=== PATIENT | female | born 1995 | race Caucasian/White ===

== ENCOUNTER 2019-06-13 17:09 | Emergency (ER) | payer SELFPAY ==
[~2019-06-13] VITALS: Ht 152.4 cm; Wt 79.4 kg
[~2019-06-13 17:09] MED LIST: AGM875T PO; ALBU8.5H2 IH; AMOX500C2 PO; BENZ100C18 PO; CITA20TA4 PO; Celexa; DOXY100C2 PO; HYDR-1231 PO; LISD40CA3 PO; LMT25T PO; MNTL10T PO; NAPR-243 PO; OSEL45CA PO; SLMFT1E INH
--- NOTE | 2019-06-13 17:24 | NUR ---
PT TO FT1 AT THIS TIME.
[2019-06-13] MEDS ORDERED: IBUPROFEN 800 MG (MOTRIN) TAB PO STA (17:38)
[2019-06-13] MEDS ORDERED: AMOX500C2 PO (17:40)
--- NOTE | 2019-06-13 17:43 | ED EENT ---
History of Present Illness General Chief Complaint: Dental Problems/Pain Stated Complaint: DENTAL PAIN,WISDOM TOOTH BROKE Nursing Triage Note: PT TO ED W/ C/O DENTAL PAIN ONSET X3 DAYS R/T POSS BROKEN WISDOM TOOTH. REPORTS TAKING OTC MEDS FOR PAIN BUT DENIES IMPROVEMENT. History of Present Illness Date Seen by Provider: Jun 13, 2019 Time Seen by Provider: 17:25 Initial Comments 23-year-old female presents for right lower dental pain. She states the symptoms of been present for approximately 2 days. She's been trying aqeh-eqs-ctdjnlz medicines that has not taken any today. She does not see a dentist regularly. Timing/Duration: abrupt Location: dental Prearrival Treatment: no prearrival treatment, over the counter meds (yesterday) Associated Symptoms: denies symptoms Allergies and Home Medications Allergies Coded Allergies: NKANo Known Allergies (Unverified Allergy, Mild, 03/10/09) Home Medications Amoxicillin 500 Mg Capsule, 2 EACH PO TID Prescribed by: CRESCENCIO OCHOA on 07/23/141914 Amoxicillin 500 Mg Capsule, 500 MG PO TID Prescribed by: MAHSA HERNÁNDEZ on 06/13/19 174 Hydrocodone Bit/Acetaminophen 1 Tab Tablet, 1 TAB PO Q4H PRN for PAIN Prescribed by: CRESCENCIO OCHOA on 07/23/141914 Patient Home Medication List Home Medication List Reviewed: Yes Review of Systems Review of Systems Constitutional: no symptoms reported, see HPI Mouth: see HPI, pain (right lower dental) All Other Systems Reviewed Negative Unless Noted: Yes Past Heunwnn-Wzrvcc-Fqznjv Hx Past Med/Social Hx: Reviewed Nursing Past Med/Soc Hx Patient Social History Alcohol Use: Rarely Uses Recreational Drug Use: No 2nd Hand Smoke Exposure: Yes ([employer]) Recent Foreign Travel: No Contact w/Someone Who Travel: No Recent Infectious Disease Expo: No Past Medical History Surgeries: No Respiratory: Yes (FREQUENT BRONCHITIS WHEN YOUNG) Asthma Cardiac: No Neurological: No Reproductive Disorders: No Sexually Transmitted Disease: No Gastrointestinal: No Musculoskeletal: No Endocrine: Yes Hypothyroidsim HEENT: No Cancer: No Psychosocial: Yes Anxiety Integumentary: No Blood Disorders: No Physical Exam Vital Signs Vital Signs - First Documented 06/13/19 17:18 Temp 97.8 Pulse 68 Resp 18 B/P (MAP) 131/93 (106) Pulse Ox 98 O2 Delivery Room Air Height, Weight, BMI Height: 5'1" Weight: 175lbs. oz. 79.941445en; BMI Method:Stated General Appearance: WD/WN, no apparent distress Ears: bilateral ear auricle normal, bilateral ear canal normal, bilateral ear TM normal Nose: normal inspection; No discharge Mouth/Throat: pharynx normal, dental tenderness (right lower molars); No mandibular swelling, No maxillary swelling, No pharynx swelling, No pharynx tenderness, No tongue swollen, No tonsillar exudate, No tonsillar swelling, No uvula swelling, No voice changes Cardiovascular: normal peripheral pulses, regular rate, rhythm Respiratory: chest non-tender, lungs clear, normal breath sounds Neurologic/Psychiatric: no motor/sensory deficits, alert, normal mood/affect, oriented x 3 Skin: normal color, warm/dry Progress/Results/Core Measures Results/Orders My Orders Orders - MAHSA HERNÁNDEZ Ibuprofen Tablet (Motrin Tablet) (06/13/19 17:38) Vital Signs/I&O 06/13/19 06/13/19 17:18 17:48 Temp 97.8 Pulse 68 0 Resp 18 0 B/P (MAP) 131/93 (106) 0/0 (0) Pulse Ox 98 0 O2 Delivery Room Air Blood Pressure Mean: 106 Departure Impression Primary Impression: Pain, dental Disposition: 01 HOME, SELF-CARE Condition: Improved Departure-Patient Inst. Decision time for Depature: 17:40 Referrals: [facility] (PCP/Family) Primary Care Physician Patient Instructions: Dental Pain (DC) Add. Discharge Instructions: Alternate between ibuprofen 600 mg and Tylenol 650 mg every 4 hours. Take amoxicillin as prescribed. Follow-up with your dentist or the [facility] dental clinic on Saturday. You may apply zfcb-ujr-[id number] topical medicine for dental pain (Oragel, Ambesol etc). Ice or heat to cheek/jaw. Return to emergency department for new, urgent health care needs. All discharge instructions reviewed with patient and/or family. Voiced understanding. Scripts Amoxicillin (Amoxicillin) 500 Mg Capsule 500 MG PO TID, #21 CAP 0 Refills Prov: MAHSA HERNÁNDEZ 06/13/19 MAHSA HERNÁNDEZ Jun 13, 2019 17:43
[2019-06-13 17:48] VITALS: BP 0/0
--- NOTE | 2019-06-13 17:48 | NUR ---
PT DISCHARGED TO HOME W/ INSTR. RX TRANSMITTED TO [facility]. PT TO TAKE MEDS PRESCRIBED, F/U W/ DENTIST ET RETURN FOR ANY OTHER CONCERNS. NO QUESTIONS, UNDERSTANDING VOICED
== END 2019-06-13 17:48 | disposition home or self-care (01) ==
LOC: EDUNIT# 17:09 → ER 17:10
DX: K08.89 Other specified disorders of teeth and supporting structures (principal); E03.9 Hypothyroidism, unspecified; J45.909 Unspecified asthma, uncomplicated; F41.9 Anxiety disorder, unspecified
CPT/HCPCS: 99283

== ENCOUNTER → 2019-07-10 | Outpatient (CLI) | payer SELFPAY ==
--- NOTE | 2019-07-10 10:54 | Diagnostic Imaging Report ---
Indication: Difficulty swallowing. The right lobe of the thyroid measures 2.9 x 0.7 x 0.9 cm and the left lobe measures 3.1 x 0.8 x 1.0 cm. The isthmus is 2 mm in thickness. Both lobes of the thyroid show homogeneous echotexture. No discrete thyroid mass is detected. Impression: Unremarkable thyroid ultrasound. Dictated by: Dictated on workstation # [id number]
== END ==
LOC: RAD 10:14
PROVIDERS: ATTEND Nurse Practitioner Community Health
DX: M54.2 Cervicalgia (principal); R13.10 Dysphagia, unspecified; R09.89 Other specified symptoms and signs involving the circulatory and respiratory systems
CPT/HCPCS: 76536

== ENCOUNTER 2019-11-27 18:47 | Emergency (ER) | payer SELFPAY ==
[~2019-11-27] VITALS: Ht 152.4 cm; Wt 81.8 kg
[2019-11-27] MEDS ORDERED: LACTATED RINGERS 1,000 ML IV ONE (19:47)
--- NOTE | 2019-11-27 20:14 | ED Headache ---
General Chief Complaint: Eye Problems Stated Complaint: VISION PROBLEMS Nursing Triage Note: Pt amb to room #10 with c/o blurred vision and headache. Pt reports on this day while at work, she began to experience blurred vision, after looking at florescent lights, lasting approx x2 minutes. Pt states, "I saw flashing light mostly in my Lt eye." Pt reports after episode, headache began et is accompanied by photophobia. A&OX4. 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 VISION RETURNED TO NORMAL. THEN SHE BEGAN TO HAVE A "MIGRAINE" --STATES IT IS A POUNDING BEHIND HER RIGHT EYE, AND IS SENSITIVE TO LIGHT. HAS NOT TAKEN ANYTHING FOR HEADACHE NO NAUSEA/VOMITING NO DIZZINESS NO SYNCOPE OR SEIZURE ACTIVITY NO PARESTHESIAS OR MOTOR DEFICITS NO FEVER OR RECENT ILLNESS NO NECK PAIN OR STIFFNESS STATES THIS IS NOT A NEW JOB FOR HER, AND NOTHING ABOUT HER WORK ENVIRONMENT HAS CHANGED, HAS BEEN THERE SINCE 02/2019 DENIES ANY UNUSUAL STRESSORS. LMP--IUD PLACED IN JUN, A COUPLE OF MONTHS AGO. PCP: [facility], TALHA MERA Allergies and Home Medications Allergies Coded Allergies: NKANo Known Allergies (Unverified Allergy, Mild, 03/10/09) Home Medications Amoxicillin 500 Mg Capsule, 2 EACH PO TID Prescribed by: CRESCENCIO OCHOA on 07/23/141914 Amoxicillin 500 Mg Capsule, 500 MG PO TID Prescribed by: MAHSA HERNÁNDEZ on 06/13/19 174 Hydrocodone Bit/Acetaminophen 1 Tab Tablet, 1 TAB PO Q4H PRN for PAIN Prescribed by: CRESCENCIO OCHOA on 07/23/141914 Review of Systems Review of Systems Constitutional: no symptoms reported; No chills, No diaphoresis, No dizziness, No fever Eyes: See HPI, Blurred Vision, Pain, Photophobia, Vision Changes Ears, Nose, Mouth, Throat: no symptoms reported Respiratory: no symptoms reported Cardiovascular: no symptoms reported Gastrointestinal: no symptoms reported Genitourinary: no symptoms reported : No Musculoskeletal: no symptoms reported Skin: no symptoms reported Psychiatric/Neurological: See HPI, Headache; Denies Numbness, Denies Paresthesia, Denies Seizure, Denies Tingling, Denies Weakness Past Ujfwawd-Csqdgs-Yojset Hx Past Med/Social Hx: Reviewed and Corrections made Patient Social History Alcohol Use: Occasionally Uses Recreational Drug Use: No Smoking Status: Never a Smoker 2nd Hand Smoke Exposure: Yes ([employer]) Recent Foreign Travel: No Contact w/Someone Who Travel: No Recent Infectious Disease Expo: No Past Medical History Surgeries: No Respiratory: Yes (FREQUENT BRONCHITIS WHEN YOUNG) Asthma Cardiac: No Neurological: No Reproductive Disorders: No Sexually Transmitted Disease: No Genitourinary: No Gastrointestinal: No Musculoskeletal: No Endocrine: Yes Hypothyroidsim HEENT: No Cancer: No Psychosocial: Yes Anxiety Integumentary: No Blood Disorders: No Physical Exam Vital Signs Vital Signs - First Documented 11/27/19 19:28 Temp 36.6 Pulse 72 Resp 18 B/P (MAP) 116/83 (94) Pulse Ox 97 O2 Delivery Room Air Capillary Refill : Less Than 3 Seconds Height, Weight, BMI Height: 5'1" Weight: 175lbs. oz. 79.597627ye; 35.00 BMI Method:Stated General Appearance: WD/WN, no apparent distress HEENT: PERRL/EOMI, normal ENT inspection, TMs normal, pharynx normal, photophobia (MILD PHOTOPHOBIA INITIALLY WHEN I ENTERED ROOM, BUT THEN SHOWED NO SIGNS OF PHOTOPHOBIA AFTER A MINUTE OR TWO. ) Neck: non-tender, full range of motion, supple, normal inspection Cardiovascular: normal peripheral pulses, regular rate, rhythm, no edema, no JVD, no murmur Respiratory: normal breath sounds, no respiratory distress, no accessory muscle use Gastrointestinal: non tender, soft Back: normal inspection Extremities: normal inspection Psychiatric: alert, oriented x 3 Crainal Nerves: normal hearing, normal speech, PERRL Coordination/Gait: normal finger to nose, normal gait, negative Romberg's sign Motor/Sensory: no motor deficit, no sensory deficit, no pronator drift Skin: normal color, warm/dry Progress/Results/Core Measures Results/Orders Lab Results Laboratory Tests Test 11/27/19 20:13 11/27/19 20:38 Range/Units White Blood Count 9.3 4.3-11.0 10^3/uL Red Blood Count 4.67 4.35-5.85 10^6/uL Hemoglobin 13.9 11.5-16.0 G/DL Hematocrit 40 35-52 % Mean Corpuscular Volume 86 80-99 FL Mean Corpuscular Hemoglobin 30 25-34 PG Mean Corpuscular Hemoglobin Concent 35 32-36 G/DL Red Cell Distribution Width 13.3 10.0-14.5 % Platelet Count 351 130-400 10^3/uL Mean Platelet Volume 10.6 H 7.4-10.4 FL Neutrophils (%) (Auto) 64 42-75 % Lymphocytes (%) (Auto) 28 12-44 % Monocytes (%) (Auto) 6 0-12 % Eosinophils (%) (Auto) 1 0-10 % Basophils (%) (Auto) 0 0-10 % Neutrophils # (Auto) 6.0 1.8-7.8 X 10^3 Lymphocytes # (Auto) 2.6 1.0-4.0 X 10^3 Monocytes # (Auto) 0.6 0.0-1.0 X 10^3 Eosinophils # (Auto) 0.1 0.0-0.3 10^3/uL Basophils # (Auto) 0.0 0.0-0.1 10^3/uL Erythrocyte Sedimentation Rate 15 0-20 MM/HR Prothrombin Time 13.4 12.2-14.7 SEC INR Comment 1.0 0.8-1.4 Activated Partial Thromboplast Time 28 24-35 SEC Sodium Level 139 135-145 MMOL/L Potassium Level 4.1 3.6-5.0 MMOL/L Chloride Level 105 98-107 MMOL/L Carbon Dioxide Level 20 L 21-32 MMOL/L Anion Gap 14 5-14 MMOL/L Blood Urea Nitrogen 11 7-18 MG/DL Creatinine 0.79 0.60-1.30 MG/DL Estimat Glomerular Filtration Rate > 60 BUN/Creatinine Ratio 14 Glucose Level 94 70-105 MG/DL Calcium Level 9.4 8.5-10.1 MG/DL Corrected Calcium 9.1 8.5-10.1 MG/DL Magnesium Level 1.9 1.6-2.4 MG/DL Total Bilirubin 0.8 0.1-1.0 MG/DL Aspartate Amino Transf (AST/SGOT) 14 5-34 U/L Alanine Aminotransferase (ALT/SGPT) 9 0-55 U/L Alkaline Phosphatase 80 40-136 U/L Total Protein 7.7 6.4-8.2 GM/DL Albumin 4.4 3.2-4.5 GM/DL Free Thyroxine 0.95 0.70-1.48 NG/DL TSH [place] Testing 4.96 H 0.35-4.94 UIU/ML Urine Color YELLOW Urine Clarity CLEAR Urine pH 5.5 5-9 Urine Specific [place] 1.020 1.016-1.022 Urine Protein NEGATIVE NEGATIVE Urine Glucose (UA) NEGATIVE NEGATIVE Urine Ketones NEGATIVE NEGATIVE Urine Nitrite NEGATIVE NEGATIVE Urine Bilirubin NEGATIVE NEGATIVE Urine Urobilinogen 0.2 < = 1.0 MG/DL Urine Leukocyte Esterase TRACE H NEGATIVE Urine RBC (Auto) 1+ H NEGATIVE Urine RBC 0-2 /HPF Urine WBC 5-10 H /HPF Urine Squamous Epithelial Cells 0-2 /HPF Urine Crystals NONE /LPF Urine Bacteria TRACE /HPF Urine Casts NONE /LPF Urine Mucus NEGATIVE /LPF Urine Culture Indicated YES My Orders Orders - WESLEY HAN DO Ed Iv/Invasive Line Start (11/27/19 19:47) Urine Bedside (11/27/19 19:47) Monitor-Rhythm Ecg Trace Only (11/27/19 19:47) Ct Head Wo-R/O Stroke (11/27/19 19:47) Cbc With Automated Diff (11/27/19 19:47) Comprehensive Metabolic Panel (11/27/19 19:47) Erythrocyte Sedimentation Rate (11/27/19 19:47) Magnesium (11/27/19 19:47) Protime With Inr (11/27/19 19:47) Partial Thromboplastin Time (11/27/19 19:47) Thyroid Analyzer (11/27/19 19:47) Ua Culture If Indicated (11/27/19 19:47) Ed Iv/Invasive Line Start (11/27/19 19:47) Lactated Ringers (Lr 1000 Ml Iv Solution (11/27/19 19:47) Free T4 (Free Thyroxine) (11/27/19 20:13) Urine Culture (11/27/19 20:38) Medications Given in ED Current Medications Medications Dose Ordered Sig/Jayden Route Start Time Stop Time Status Last Admin Dose Admin Lactated Ringer's 1,000 ml @ 0 mls/hr Q0M ONCE IV 11/27/19 19:47 11/27/19 19:49 DC 11/27/19 20:12 999 MLS/HR Vital Signs/I&O 11/27/19 19:28 Temp 36.6 Pulse 72 Resp 18 B/P (MAP) 116/83 (94) Pulse Ox 97 O2 Delivery Room Air Blood Pressure Mean: 94 Departure Impression Primary Impression: Migraine headache with aura Disposition: HOME, SELF-CARE Condition: Improved Departure-Patient Inst. Referrals: [facility] (PCP/Family) Primary Care Physician Patient Instructions: Migraine Headache (DC) Add. Discharge Instructions: LOTS OF CLEAR LIQUIDS FOLLOW UP WITH YOUR DR NEXT WEEK FOR FURTHER CARE All discharge instructions reviewed with patient and/or family. Voiced understanding. Scripts Nitrofurantoin Monohyd/M-Cryst (Macrobid 100 mg Capsule) 100 Mg Capsule 100 MG PO BID, #20 CAP Prov: REFUGIO HANA K DO 11/27/19 Ibuprofen (Ibuprofen) 800 Mg Tablet 800 MG PO Q8H PRN for PAIN, #30 TAB Prov: REFUGIO HANA K DO 11/27/19 Butalb/Acetaminophen/Caffeine (Esgic Capsule) 1 Each Capsule 1-2 EACH PO Q6H, #10 CAP Prov: REFUGIO HANA K DO 11/27/19 REFUGIO HANA K DO Nov 27, 2019 20:14
[2019-11-27 20:23] LABS: BASOPHILS % (AUTO) 0 % (0-10); EOSINOPHILS # (AUTO) 0.1 10^3/uL (0.0-0.3); EOSINOPHILS % (AUTO) 1 % (0-10); HEMATOCRIT 40 % (35-52); HEMOGLOBIN 13.9 G/DL (11.5-16.0); LYMPHOCYTES # (AUTO) 2.6 X 10^3 (1.0-4.0); LYMPHOCYTES % (AUTO) 28 % (12-44); MEAN CORPUSCULAR HEMOGLOBIN 30 PG (25-34); MEAN CORPUSCULAR HGB CONC 35 G/DL (32-36); MEAN CORPUSCULAR VOLUME 86 FL (80-99); MEAN PLATELET VOLUME 10.6 FL (7.4-10.4); MONOCYTES # (AUTO) 0.6 X 10^3 (0.0-1.0); MONOCYTES % (AUTO) 6 % (0-12); NEUTROPHILS % (AUTO) 64 % (42-75); PLATELET COUNT 351 10^3/uL (130-400); RED CELL DISTRIBUTION WIDTH 13.3 % (10.0-14.5); WHITE BLOOD COUNT 9.3 10^3/uL (4.3-11.0)
[2019-11-27 20:39] LABS: PROTHROMBIN TIME PATIENT 13.4 SEC (12.2-14.7)
[2019-11-27 20:42] LABS: ERYTHROCYTE SEDIMENTATION RATE 15 MM/HR (0-20)
[2019-11-27 20:43] LABS: ALANINE AMINOTRANSFERASE 9 U/L (0-55); ALBUMIN 4.4 GM/DL (3.2-4.5); ALKALINE PHOSPHATASE 80 U/L (40-136); BILIRUBIN,TOTAL 0.8 MG/DL (0.1-1.0); BUN/CREATININE RATIO 14; CALCIUM 9.4 MG/DL (8.5-10.1); CARBON DIOXIDE 20 MMOL/L (21-32); CHLORIDE 105 MMOL/L (98-107); CREATININE SERUM 0.79 MG/DL (0.60-1.30); GFR ESTIMATED > 60; GLUCOSE 94 MG/DL (70-105); MAGNESIUM 1.9 MG/DL (1.6-2.4); POTASSIUM 4.1 MMOL/L (3.6-5.0); SODIUM 139 MMOL/L (135-145); TOTAL PROTEIN 7.7 GM/DL (6.4-8.2)
[2019-11-27 20:48] LABS: BILIRUBIN,URINE NEGATIVE (NEGATIVE); CLARITY,URINE CLEAR; COLOR,URINE YELLOW; GLUCOSE, URINE (UA) NEGATIVE (NEGATIVE); KETONES,URINE NEGATIVE (NEGATIVE); LEUKOCYTE ESTERASE ,URINE TRACE (NEGATIVE); NITRITE,URINE NEGATIVE (NEGATIVE); PH,URINE 5.5 (5-9); PROTEIN,URINE NEGATIVE (NEGATIVE)
[2019-11-27 21:03] LABS: TSH (THYROID ANALYZER) 4.96 UIU/ML (0.35-4.94)
--- NOTE | 2019-11-27 21:07 | Diagnostic Imaging Report ---
PROCEDURE: CT head w/o, r/o stroke. TECHNIQUE: Multiple contiguous axial images were obtained through the brain without the use of intravenous contrast. Auto Exposure Controls were utilized during the CT exam to meet ALARA standards for radiation dose reduction. DATE: November 27, 2019. COMPARISON: None. INDICATION: 24-year-old female, blurry vision and headache. FINDINGS: The ventricles and cerebral spinal fluid spaces are of normal size and configuration for the patient's age. There is no mass effect or midline shift. There is no acute intracranial hemorrhage. There is no abnormal extra-axial fluid collection. The visualized portions of the paranasal sinuses, mastoid air cells and middle ears are well aerated. IMPRESSION: No identified acute intracranial abnormality. Dictated by: Dictated on workstation # [id number]
[2019-11-27 21:15] LABS: BACTERIA,URINE TRACE /HPF; RBC,URINE 0-2 /HPF; SQUAMOUS EPITHELIAL CELL,UR 0-2 /HPF
[2019-11-27 22:08] LABS: FREE T4 (FREE THYROXINE) 0.95 NG/DL (0.70-1.48)
[2019-11-27] MEDS ORDERED: KETOROLAC 30 MG/ML VIAL IVP ONE (22:45)
[2019-11-27] MEDS ORDERED: NITROFURANTOIN 100 MG (MACROBID) CAPSULE PO ONE (22:45)
[2019-11-27] MEDS ORDERED: IBUP-1780 PO (22:48)
[2019-11-27] MEDS ORDERED: NITR-65 PO (22:48)
[2019-11-27] MEDS ORDERED: BUTA1CAP45 PO (22:48)
[2019-11-27 23:24] VITALS: BP 132/81
== END 2019-11-27 23:24 | disposition home or self-care (01) ==
LOC: EDUNIT# 18:47 → ER 18:48
DX: G43.109 Migraine with aura, not intractable, without status migrainosus (principal)
CPT/HCPCS: 36415; 70450; 80053; 81000; 83735; 84439; 84443; 84703; 85025; 85610; 85652; 85730; 87088; 93041; 96361; 96374

== ENCOUNTER 2020-09-30 19:21 | Emergency (ER) | payer SELFPAY ==
[~2020-09-30] VITALS: Ht 152.4 cm; Wt 78.0 kg
[~2020-09-30 19:21] MED LIST changes: +BUTA1CAP45 PO; +IBUP-1780 PO; +NITR-65 PO
[2020-09-30 19:31] VITALS: BP 117/80
[2020-09-30] MEDS ORDERED: ANTACID SUSP 30 ML UDC (MYLANTA) PO ONE (19:45)
[2020-09-30] MEDS ORDERED: LIDOCAINE 2% VISCOUS 15 ML UDC PO ONE (19:45)
--- NOTE | 2020-09-30 19:45 | ED Abdominal Pain ---
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 PT REPORTS HX OF ASTHMA. Sepsis Screen: No Definite Risk Source of Information: Patient Exam Limitations: No Limitations History of Present Illness Date Seen by Provider: Sep 30, 2020 Time Seen by Provider: 19:44 Initial Comments ER by private vehicle with reports of sudden onset of nausea at home, she felt like she was going to vomit and the material only came part way up before going back down and now her throat maguire. She was short of breath when this happened. She has no nausea or shortness of breath now. She felt perfectly fine until this happened. No fevers or chills or exposure to ill contacts. Timing/Duration: 1/2 Hour Severity/Quality: Mild Location: Other Radiation: No Radiation Activities at Onset: None Allergies and Home Medications Allergies Coded Allergies: NKANo Known Allergies (Unverified Allergy, Mild, 03/10/09) Home Medications Amoxicillin 500 Mg Capsule, 2 EACH PO TID Prescribed by: CRESCENCIO OCHOA on 07/23/141914 Amoxicillin 500 Mg Capsule, 500 MG PO TID Prescribed by: MAHSA HERNÁNDEZ on 06/13/19 1740 Butalb/Acetaminophen/Caffeine 1 Each Capsule, 1-2 EACH PO Q6H Prescribed by: WESLEY HAN on 11/27/192247 Hydrocodone Bit/Acetaminophen 1 Tab Tablet, 1 TAB PO Q4H PRN for PAIN Prescribed by: CRESCENCIO OCHOA on 07/23/141914 Ibuprofen 800 Mg Tablet, 800 MG PO Q8H PRN for PAIN Prescribed by: WESLEY HAN on 11/27/192247 Nitrofurantoin Monohyd/M-Cryst 100 Mg Capsule, 100 MG PO BID Prescribed by: WESLEY HAN on 11/27/192247 Patient Home Medication List Home Medication List Reviewed: Yes Review of Systems Review of Systems Constitutional: see HPI EENTM: No Symptoms Reported Respiratory: No Symptoms Reported Cardiovascular: No Symptoms Reported Gastrointestinal: See HPI Genitourinary: No Symptoms Reported Musculoskeletal: no symptoms reported Skin: no symptoms reported Psychiatric/Neurological: No Symptoms Reported Endocrine: No Symptoms Reported Past Dhtrosr-Xllcaj-Hjyrod Hx Patient Social History Alcohol Use: Rarely Uses Recreational Drug Use: No Smoking Status: Never a Smoker 2nd Hand Smoke Exposure: Yes ([employer]) Recent Foreign Travel: No Contact w/Someone Who Travel: No Recent Infectious Disease Expo: No Recent Hopitalizations: No Physical Abuse: No Sexual Abuse: No Mistreated: No Fear: No Seasonal Allergies Seasonal Allergies: Yes Past Medical History Surgeries: No Respiratory: Yes (FREQUENT BRONCHITIS WHEN YOUNG) Asthma Cardiac: No Neurological: No Reproductive Disorders: No Sexually Transmitted Disease: No Genitourinary: No Gastrointestinal: No Musculoskeletal: No Endocrine: Yes Hypothyroidsim HEENT: No Cancer: No 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 oz. 79.050199xn; 33.00 BMI Method:Stated General Appearance: WD/WN, no apparent distress Neck: non-tender, full range of motion Respiratory: no respiratory distress, no accessory muscle use Cardiovascular: regular rate, rhythm, no murmur Gastrointestinal: normal bowel sounds, non tender, soft Extremities: normal range of motion, non-tender Neurologic/Psychiatric: alert, normal mood/affect Skin: normal color, warm/dry Progress/Results/Core Measures Results/Orders My Orders Orders - STEPHANY SINGH APRN Covid 19 Inhouse Test (09/30/20 19:24) Coronavirus Sars-Cov-2 So 2018 (09/30/20 19:24) Cbc With Automated Diff (09/30/20 19:24) Hs C Reactive Protein (09/30/20 19:24) Ua Culture If Indicated (09/30/20 19:24) Hcg,Qualitative Serum (09/30/20 19:24) Chest 1 View, Ap/Pa Only (09/30/20 19:24) Procalcitonin (Pct) (09/30/20 19:24) Ed Iv/Invasive Line Start (09/30/20 19:24) Fibrin Degradation Products (09/30/20 19:24) Antacid Suspension (Mylanta Suspension (09/30/20 19:45) Lidocaine 2% Viscous 15 Ml (Xylocaine Vi (09/30/20 19:45) Medications Given in ED Current Medications Medications Dose Ordered Sig/Jayden Route Start Time Stop Time Status Last Admin Dose Admin Al Hydrox/Mg Hydrox/Simethicone 30 ml ONCE ONCE PO 09/30/20 19:45 09/30/20 19:46 DC 09/30/20 19:42 30 ML Lidocaine HCl 10 ml ONCE ONCE PO 09/30/20 19:45 09/30/20 19:46 DC 09/30/20 19:42 10 ML Vital Signs/I&O 09/30/20 19:31 Temp 36.5 Pulse 68 Resp 19 B/P (MAP) 117/80 (92) O2 Delivery Room Air Blood Pressure Mean: 92 Departure Communication (Admissions) 1953-discomfort in her throat is gone, nausea is gone. Feeling better. Also appears quite anxious. States she used to take something for anxiety but primary care "giving it to her. Impression Primary Impression: GERD (gastroesophageal reflux disease) Additional Impression: Anxiety Disposition: 01 HOME, SELF-CARE Condition: Stable Departure-Patient Inst. Decision time for Depature: 19:53 Referrals: [facility] (PCP) Primary Care Physician OMAR MERA (Family) Primary Care Physician Patient Instructions: Acid Reflux and GERD in Adults (DC) Add. Discharge Instructions: 1. Medication as directed 2. Follow-up with your doctor next week 3. All discharge instructions reviewed with patient and/or family. Voiced understanding. Scripts Hydroxyzine HCl (Hydroxyzine HCl) 25 Mg Tablet 25 MG PO Q6H PRN for ANXIETY, #10 TAB Prov: STEPHANY SINGH APRN 09/30/20 STEPHANY SINGH APRN Sep 30, 2020 19:45
[2020-09-30] MEDS ORDERED: HYDR-700 PO (19:57)
== END 2020-09-30 20:16 | disposition home or self-care (01) ==
LOC: EDUNIT# 19:21 → ER 19:23
DX: K21.9 Gastro-esophageal reflux disease without esophagitis (principal); F41.9 Anxiety disorder, unspecified; Z77.22 Contact with and (suspected) exposure to environmental tobacco smoke (acute) (chronic)
CPT/HCPCS: 99282